=== PATIENT | female | born 1990 | race Hispanic/Latino ===

== ENCOUNTER 2017-04-04 12:25 | Emergency (ER) | payer SELFPAY ==
[2017-04-04] MEDS ORDERED: Ibuprofen 800 MG TAB ONE (12:35)
[2017-04-04] MEDS ORDERED: Acetaminophen 500 MG TAB ONE (12:35)
[2017-04-04] MEDS ORDERED: Ondansetron ODT 4 MG TAB ONE (13:45)
[2017-04-04 14:07] LABS: Bilirubin Negative (Negative); Blood, Urine Negative (Negative); Glucose, Urine (Dipstick) Negative (Negative); Ketone, Urine Negative (Negative); Nitrite Negative (Negative); Protein, Urine (Dipstick) 100 mg/dL (Neg-Trace)
[2017-04-04 14:10] LABS: Bacteria/HPF Rare-Few HPF (None Seen); Hyaline Casts/LPF 0-3 HYALINE CAST LPF (0-3 Hyaline); Squamous Epithelial 0-3 HPF (0-3); WBC/HPF 0-3 HPF (0-3)
--- NOTE | 2017-04-04 14:21 | RAD ---
PORTABLE AP CHEST RADIOGRAPH: Date: 04-04-17 History: Fever. Headache. Flu symptoms. FINDINGS: Cardiac silhouette and pulmonary vasculature are within normal limits. Lungs are clear. Osseous struc tures are intact. IMPRESSION: No acute cardiopulmonary process. POS: [facility]
== END 2017-04-04 14:50 | disposition home or self-care (01) ==
LOC: ERS 12:25
DX: J11.1 Influenza due to unidentified influenza virus with other respiratory manifestations (principal)
CPT/HCPCS: 71010; 81003; 81015; 81025; Q0162

== ENCOUNTER 2018-12-20 17:02 | Emergency (ER) | payer SELFPAY ==
[2018-12-20 17:23] LABS: #Eosinphils 0.1 thou/uL (0.0-0.7); #Lymphocytes 2.8 thou/uL (1.20-3.40); #Monocytes 0.7 thou/uL (0.11-0.59); %Basophils 0.6 % (0.0-1.0); %Eosinophils 1.5 % (0.0-10.0); %Lymphocytes 32.4 % (21.0-51.0); %Monocytes 7.9 % (0.0-10.0); %Neutrophils 57.6 % (42.0-75.0); Hemoglobin 12.2 g/dL (12.0-16.0); Mean Corpuscular HGB CONC 33.7 g/dL (32.0-36.0); Mean Corpuscular Hemoglobin 30.3 pg (27.0-31.0); Mean Corpuscular Volume 89.9 fL (78.0-98.0); Mean Platelet Volume 7.1 fL (7.4-10.4); Platelet Count 328 thou/uL (130-400); RBC Distribution Width 12.2 % (11.5-14.5); Red Blood Cell (RBC) Count 4.04 mill/uL (4.20-5.40); White Blood Cell (WBC) Count 8.6 thou/uL (4.8-10.8)
[2018-12-20 17:27] LABS: BHCG - Serum Negative (NEGATIVE); Pregs Control Background? CLEAR/WHITE (CLR/WHITE); Pregs Control Bar Appear? YES (CONTROL BAR)
--- NOTE | 2018-12-20 17:27 | CT ---
CT BRAIN WITHOUT CONTRAST: 12/20/18 HISTORY: Level II trauma. FINDINGS: No evidence of infarct, hemorrhage, midline shift, or abnormal extra-axial fluid collections are seen . The ventricular size is normal and the basilar cisterns patent. The bony calvarium is intact. The v isualized paranasal sinuses and mastoid air cells are well aerated. There is scalp contusion on the right side at the level of the vertex. IMPRESSION: No CT evidence of acute intracranial process. Discussed over the telephone with ER physician, Dr. Dirk Pfeiffer at 5:22 p.m. POS: [facility]
--- NOTE | 2018-12-20 17:28 | CT ---
CT CERVICAL SPINE WITH CORONAL AND SAGITTAL REFORMATIONS: 12/20/18 HISTORY: Level II trauma, neck pain. FINDINGS/IMPRESSION: Loss of cervical lordosis. Degenerative changes are present most prominent at C4-5 and C5-6 levels. N o acute fracture or subluxation or facet malalignment is identified. Discussed over the telephone with ER physician, Dr. Dirk Pfeiffer at 5:24 p.m. POS: [facility]
[2018-12-20 17:44] LABS: ALT (SGPT) 24 U/L (8-55); AST (SGOT) 30 U/L (5-34); Albumin 4.3 g/dL (3.5-5.0); Alkaline Phosphatase 124 U/L (40-150); Anion Gap 15 mmol/L (10-20); BUN (Urea Nitrogen) 11 mg/dL (7.0-18.7); Bilirubin, Total 0.2 mg/dL (0.2-1.2); Calc. Creatinine Clearance 0 mL/min (70-130); Calcium 9.7 mg/dL (7.8-10.44); Carbon Dioxide 21 mmol/L (22-29); Chloride 108 mmol/L (98-107); Estimated GFR-MDRD 87; Globulin 3.8 g/dL (2.4-3.5); Glucose 98 mg/dL (70-105); Potassium 3.8 mmol/L (3.5-5.1); Protein, Total 8.1 g/dL (6.0-8.3); Sodium 140 mmol/L (136-145)
[2018-12-20] MEDS ORDERED: Cyclobenzaprine 10 MG TAB PO SCH (18:00)
[2018-12-20] MEDS ORDERED: Ketorolac Tromethamine 60 MG/2 ML VIAL ONE (18:10)
[2018-12-20] MEDS ORDERED: Cyclobenzaprine 10 MG TAB ONE (18:10)
[2018-12-20] MEDS ORDERED: Ketorolac Tromethamine 60 MG/2 ML VIAL IM SCH (18:15)
== END 2018-12-20 18:27 | disposition home or self-care (01) ==
LOC: ERS 17:02
DX: S00.03XA Contusion of scalp, initial encounter (principal); V89.2XXA Person injured in unspecified motor-vehicle accident, traffic, initial encounter
CPT/HCPCS: 70450; 72125; 80053; 84703; 85025; 96372; G0390; J1885